=== PATIENT | female | born 1990 ===

== ENCOUNTER 2021-08-19 17:09 | Emergency (ER) | payer SELFPAY ==
[~2021-08-19] VITALS: Ht 165.1 cm; Wt 54.5 kg
[2021-08-19 19:27] VITALS: BP 129/60
[2021-08-19] MEDS ORDERED: OLAN5TAB30 PO (21:10)
== END 2021-08-19 22:05 | disposition home or self-care (01) ==
LOC: EMS 17:11
DX: F25.9 Schizoaffective disorder, unspecified (principal); F17.210 Nicotine dependence, cigarettes, uncomplicated
CPT/HCPCS: 99284